=== PATIENT | female | born 1940 | race Caucasian/White ===

== ENCOUNTER 2022-08-15 10:09 | Outpatient (REF) | payer MEDICARE, SELFPAY ==
--- NOTE | ~2022-08-15 | MM_ITS ---
EXAMINATION: BONE DENSITOMETRY CLINICAL INDICATION: Menopause. COMPARISON: None (current study represents initial baseline exam). TECHNIQUE: Using a [employer] DXA System (software version: 13.1) manufactured by [employer], dual-energy x-ray absorptiometry was performed of the lumbar spine and left hip. The images are of good technical quality. Summary results are attached. FINDINGS: AP SPINE L1-L4: BMD 1.183 g/cm2, Z-score 1.5, T-score 0.0, normal. LEFT FEMUR, NECK: BMD 0.778 g/cm2, Z-score 0.1, T-score -1.9, osteopenia. LEFT FEMUR, TOTAL: BMD 0.894 g/cm2, Z-score 0.9, T-score -0.9, normal. IDENTIFIED RISK FACTORS: Menopause. HISTORY OF FRACTURE: None listed. MEDICATIONS: Calcium supplements or multivitamin, vitamin D. MM/XR DEXA axial skeleton IMPRESSION: 1. DIAGNOSIS: Osteopenia based on the lowest T-score value of -1.9 in the femoral neck applying World Health Organization criteria. 2. 10-YEAR FRACTURE RISK PREDICTION, FRAX: Major osteoporotic fracture (clinical spine, forearm, hip or shoulder) 14.5%. Hip fracture 4.2%. 3. Treatment Recommendations: NOF guidelines recommend consideration for treatment in postmenopausal women and men age 50 and older presenting with the following: -A hip or vertebral (clinical or morphometric) fracture. -T-score less than or equal to -2.5 at the femoral neck or spine after appropriate evaluation to exclude secondary causes. -Low bone mass at the hip or spine and a 10-year fracture probability by FRAX of greater than or equal to 3% for hip fracture or greater than or equal to 20% for major osteoporotic fracture based on the [place] adapted WHO algorithm. 4. Other Recommendations: All treatment decisions require clinical judgment and consideration of individual patient factors, including patient preferences, comorbidities, previous drug use, risk factors not captured in the FRAX model (e.g. frailty, falls, vitamin D deficiency, increased bone turnover, interval significant decline in bone density) and possible under or overestimation of fracture risk by FRAX. Additional medical evaluation for secondary cause of low bone mineral density may be appropriate. FUTURE SCAN RECOMMENDATION: People with diagnosed cases of osteoporosis or at high risk for fracture should have regular bone mineral density tests. For patients eligible for Medicare, routine testing is allowed once every 2 years. The testing frequency can be increased to one year for patients who have rapidly progressing disease, those who are receiving or discontinuing medical therapy to restore bone mass, or have additional risk factors.
== END 2022-08-15 10:10 | disposition home or self-care (01) ==
LOC: HO.MAMMO 10:09
PROVIDERS: Visit Provider Internal Medicine
DX: Z13.820 Encounter for screening for osteoporosis (principal); Z78.0 Asymptomatic menopausal state
CPT/HCPCS: 77080

== ENCOUNTER 2023-08-07 11:26 | Inpatient (IN) | payer MEDICARE, SELFPAY ==
[2023-08-07] VITALS (21 sets, daily range): BP systolic 103–194; BP diastolic 51–127; PULSE 69–94; RESP 12–23; TEMP 36.7–36.8; O2SAT 90–100; BMI 28.9; BMI 29.6
--- NOTE | ~2023-08-07 | MR_ITS ---
MRI OF THE BRAIN WITHOUT IV CONTRAST INDICATION: CVA status post tnk COMPARISON: Same day CTA head and neck TECHNIQUE: Multiplanar multisequence MR imaging of the brain was obtained without IV contrast. FINDINGS: Focus of restricted diffusion in the left temporal parietal lobe. There is a tubular appearing focus of susceptibility artifact in this region (series 6, image 14 of 25), query thrombosed vessel. Scattered and confluent periventricular white matter T2/FLAIR hyperintensities, nonspecific however commonly seen with small vessel ischemic disease. Diffuse prominence of the sulci with associated ex vacuo dilation of the ventricles compatible with global cerebral atrophy. No midline shift or hydrocephalus. No acute extra-axial fluid collections. The osseous structures are unremarkable. Partially empty sella. The pineal gland and remaining midline structures are unremarkable. No orbital pathology. Mucosal thickening of the paranasal sinuses. Right greater than left mastoid effusions. MR/MR head/brain wo con IMPRESSION: 1. Small acute infarct in the left temporoparietal lobe. 2. Global cerebral volume loss and sequela of chronic microangiopathy.
--- NOTE | ~2023-08-07 | CT_ITS ---
EXAMINATION: CT ANGIOGRAM HEAD CT ANGIOGRAM NECK CLINICAL INFORMATION: Reason for Exam Expressive aphasia COMPARISON: Immediately preceding noncontrast head CT TECHNIQUE: Initial noncontrast k 8 school principal imaging of the head and neck was performed. Comparison is made with noncontrast head CT from earlier today. Test bolus sequences followed by intravenous administration 70 mL of Omnipaque 350. Helical imaging was performed in the axial plane from the aortic arch to the skull vertex. Delayed postcontrast imaging of the head was also performed. The data was processed at the nanotechnologist's workstation for generation of MIP sequences. Angled MIPs and volume rendered reformatted images were also generated at an offline 3D workstation. Stenoses are assessed in accordance with NASCET criteria unless otherwise indicated. DLP: 1424 mGy-cm This CT examination was performed using dose optimization techniques as appropriate, variously including the following: *Automated exposure control. *Adjustment of mA and/or kV according to patient size (this includes techniques or standardized protocols for targeted exams where dose is matched to indication/reason for exam; i.e. extremities or head). *Use of iterative reconstruction technique. FINDINGS: CT Head: There is no evidence of acute intracranial hemorrhage or edematous territorial infarction. Patchy hypoattenuation in the periventricular and deep white matter are consistent with moderate microangiopathy. Molina-white matter differentiation is preserved. The ventricles are normal in size and configuration. No evidence for obstructive hydrocephalus. No abnormal mass effect or midline shift. No extra-axial fluid collections. No pathologic intra-axial enhancement or regional oligemia. No acute soft tissue or osseous abnormalities. The mastoid air cells and paranasal sinuses are clear. Degenerative changes of the right temporomandibular joint. CT Neck: The thyroid gland and remaining cervical soft tissues are within normal limits. Multilevel cervical spondylosis CT Upper Chest: The visualized lung apices and upper mediastinum are within normal limits. Neck CTA: Aortic Arch: Normal contour and caliber. There is atherosclerotic calcification of the aortic arch. Conventional three-vessel aortic arch. Great Vessel Origins: Atherosclerotic calcification involving the aortic arch branch origins without significant stenosis. There is mild atherosclerotic narrowing of the proximal left subclavian artery. Right Common Carotid Artery: No focal stenosis or occlusion. Cervical Right Internal Carotid Artery: Calcific atherosclerotic disease of the carotid bulb and proximal internal carotid artery causing less than 50% stenosis. Left Common Carotid Artery: No focal stenosis or occlusion. Cervical Left Internal Carotid Artery: Calcific atherosclerotic disease of the carotid bulb and proximal internal carotid artery causing less than 50% stenosis. The origins of the vertebral arteries are not well visualized due to streak artifact. Cervical Right Vertebral Artery: No focal stenosis or occlusion. Cervical Left Vertebral Artery: No focal stenosis or occlusion. Brain CTA: Intracranial Internal Carotid Arteries: Calcific atherosclerotic disease of the intracranial internal carotid arteries without occlusion or flow-limiting stenosis. Right Anterior Cerebral Artery: Normal A1 segment. Normal opacification of the distal ANDREIA segments. Left Anterior Cerebral Artery: Normal A1 segment. Normal opacification of the distal ANDREIA segments. Anterior Communicating Artery: Normal. Right Middle Cerebral Artery: Normal M1 segment of the MCA without focal stenosis or occlusion. Normal arborization of the distal segments. Left Middle Cerebral Artery: Normal M1 segment of the MCA without focal stenosis or occlusion. Normal arborization of the distal segments. Right Vertebral Artery: Mild calcified atherosclerotic narrowing of the proximal intradural right vertebral artery without additional focal stenosis. Left Vertebral Artery: Normal V4 segment. Basilar Artery: Normal without focal stenosis or occlusion. Normal appearance of the proximal superior cerebellar arteries. Right Posterior Cerebral Artery: Normal P1 segment. Normal opacification of the distal [employer]OR [employer] segments. Left Posterior Cerebral Artery: Normal P1 segment. Normal opacification of the distal [employer]OR [employer] segments. Normal opacification of the superior sagittal, straight, transverse, and sigmoid sinuses. CT/CT angio head neck stroke IMPRESSION: No arterial high grade stenosis or large vessel occlusion in the head or neck. Above impression was communicated to Dr. Harper on 08/07/2023 12:13 PM
--- NOTE | ~2023-08-07 | CT_ITS ---
CT head for stroke CLINICAL INFORMATION: Reason for Exam Expressive aphasia COMPARISON: No prior CT available for comparison. TECHNIQUE: Department standard protocol. This CT examination was performed using dose optimization techniques as appropriate, variously including the following: *Automated exposure control *Adjustment of mA and/or kV according to patient size (this includes techniques or standardized protocols for targeted exams where dose is matched to indication/reason for exam; i.e. extremities or head) *Use of iterative reconstruction technique DLP: 672 mGy-cm FINDINGS: CEREBRAL HEMISPHERES: There is no evidence of intra-axial or extra-axial mass, hemorrhage or acute infarct. BRAIN PARENCHYMA: Deep white matter and paraventricular hypoattenuation, nonspecific; most likely changes secondary to chronic ischemia due to microvascular angiopathy. SUBDURAL SPACE: No bleed. BASAL GANGLIA AND PINEAL GLAND: Unremarkable VENTRICLES: Symmetric and normal in size. CEREBELLUM AND BRAINSTEM: No space-occupying mass, hemorrhage or acute infarct. CEREBELLOPONTINE ANGLES: No lesion found. ORBITS: No intraorbital mass. VESSELS: Unremarkable SKULL BASE: Unremarkable INCLUDED SINUSES AT SKULL BASE: Clear SKULL AND SKIN: No fracture or bone lesion found. CT/CT head for stroke IMPRESSION: No CT evidence of intracranial space-occupying mass, bleed or infarct. This critical result was discussed with Demi Harper MD by telephone at 08/07/2023 12:00 PM and it was ascertained that the content and urgency of the report was understood at the time of direct communication.
--- NOTE | 2023-08-07 11:33 | ECG_ITS ---
Test Reason : STROKE Blood Pressure : / mmHG Vent. Rate : 089 BPM Atrial Rate : 089 BPM P-R Int : 174 ms QRS Dur : 076 ms QT Int : 360 ms P-R-T Axes : 083 -30 053 degrees QTc Int : 438 ms Normal sinus rhythm Left anterior fascicular block Low voltage QRS Inferior infarct , age undetermined Cannot rule out Anterior infarct , age undetermined Abnormal ECG No previous ECGs available Referred By: Demi Harper Electronically Signed By:NASRIN HALL MD
--- NOTE | 2023-08-07 11:36 | ED_ITS ---
HPI - Neuro Symptoms/Deficit General Chief Complaint: Stroke Stated Complaint: ?STROKE,LDROOP,DIFF W/WORDS,LKWT 30MIN,-THINN Time Seen by Provider: 08/07/23 11:33 Source: patient, family (Daughter) and EMS Mode of arrival: EMS History of Present Illness HPI Narrative: 83-year-old female who arrives via EMS with onset 45 minutes ago with difficulty F remembering her daughter's name and having difficulty with remembering how to spell words. She has some difficulty in telling us what today's date is. She is noted to be hypertensive. Related Data Allergies Allergy/AdvReac Type Severity Reaction Status Date / Time No Known Allergies Allergy Verified 08/07/23 11:36 Review of Systems 2 Review of Systems: Pertinent positives and negatives as stated in HPI PMFSH Past Medical History Source: nursing notes reviewed Social History Social History Advance Directives: No Advance Directives Information Provided: Yes Physical Exam 2 Vital Signs: Vital Signs: Last Vital Signs Temp 98.0 F 08/07/23 11:30 Pulse 73 08/07/23 13:40 Resp 18 08/07/23 13:40 BP 144/78 H 08/07/23 13:40 Pulse Ox 99 08/07/23 13:40 O2 Del Method Room Air 08/07/23 13:40 BMI result Body Mass Index 28.9 VITAL SIGNS: Reviewed. GENERAL: Well developed, well nourished, in no acute distress. HEAD: Normocephalic/atraumatic EYES: PERRLA, EOMI EARS: Ext canals without abnormality NOSE: Nares patent bilateral OROPHARYNX: no oral lesions noted, posterior pharynx clear NECK: Supple, no adenopathy LUNGS: Normal breath sounds. No adventitious sounds or accessory muscle use. CARDIOVASCULAR: Regular rate and rhythm without noted murmurs, no JVD or lower extremity edema. ABDOMEN: Soft, non-tender, non-distended with bowel sounds. MUSCULOSKELETAL: No tenderness, deformities, or effusions noted on gross inspection. EXTREMITIES: No cyanosis, clubbing or edema. SKIN: Inspection of the skin reveals no rashes NEUROLOGIC: Alert and oriented x 4. Strength and sensation to light touch were grossly intact x 4, please see NIH score-3. Medications Administered Discontinued Medications Generic Name Dose Route Start Last Admin Trade Name Freq PRN Reason Stop Dose Admin Tenecteplase 19 mg 08/07/23 12:01 08/07/23 12:09 Tenecteplase 50 Mg/10 Ml Kit IVPUSH 08/07/23 12:02 19 mg ONCE ONE Administration Medical Decision Making Medical Decision Making [facility] Narrative: 1130: 83-year-old female with history and clinical presentation concerning for possible stroke-like symptoms and primarily expressive aphasia within NIH stroke scale of 3, she is hypertensive, daughter does state that patient takes benzodiazepines and sometimes will have presentations like this. audio visual collections coordinator at bedside. POC-115, INR-1.0, weight-74 kg 1158: [facility] called with results of noncontrast CT of the head without acute changes and no intracranial hemorrhage. 1210: 19 mg of Tenectaplase given 1212: [facility] called and has not seen anything convincing on CT angio head and neck. Negative for LVO 1217: Expressive aphasia has completely cleared I reviewed all investigations and there is no EKG evidence for atrial fibrillation or atrial flutter, hematologic indices negative for leukocytosis or left shift, no anemia or thrombocytopenia. Coagulation studies are grossly within normal limits. Chemistry indices do not demonstrate any EUGENIO and there is no electrolyte derangements and high sensitivity troponin although the detectable is not significantly elevated in there are no corresponding EKG acute ischemic changes. Urinalysis negative for UTI or hematuria. 1357: I discussed case with the buyer assistant who accepts admission. Differential Diagnosis Differential Diagnoses: The differential diagnosis associated with the presentation includes Please see the discussion above Admission/Observation Consideration of admission/observation: Escalation of care including admission/observation considered Please see the discussion above Consult Healthcare Provider Management of the patient was discussed with: Training Development Director Please see the discussion above Lab Data [facility] Lab Attestation statement: I reviewed the patient's lab results. Please see the discussion above 08/07/23 12:27 08/07/23 12:27 Labs: Lab Results 08/07/23 08/07/23 08/07/23 Range/Units 11:37 12:27 12:47 WBC 5.9 (4.8-10.8) X10*3/uL RBC 4.92 (4.20-5.50) X10*6/uL Hgb 15.0 (12.0-16.0) g/dl Hct 44.6 (37.0-47.0) % MCV 90.7 (80.0-98.0) fL MCH 30.5 (27.0-33.0) pg MCHC 33.6 (31.0-35.0) g/dl RDW 13.3 (11.0-16.0) % Plt Count 196 (160-400) X10*3/uL MPV 9.7 (9.4-12.3) fL Immature Gran % (Auto) 0.3 (0.0-0.4) % Neut % (Auto) 45.5 (45-73) % Lymph % (Auto) 42.2 H (20-40) % [place] % (Auto) 9.3 (2-11) % Eos % (Auto) 1.7 (0-4) % Baso % (Auto) 1.0 (0-2) % Lymph # (Auto) 2.5 (1.2-4.9) X10*3/uL [place] # (Auto) 0.6 (0.1-1.2) X10*3/uL Eos # (Auto) 0.1 (0.0-0.4) X10*3/uL Baso # (Auto) 0.1 (0.0-0.2) X10*3/uL Abs Immat Gran (auto) 0.02 (0.00-0.03) X10*3/uL Absolute Neuts (auto) 2.7 (2.0-8.3) x10*3/uL Absolute Nucleated RBC 0.000 (0.0-0.012) X10*3/uL Nucleated RBC % (auto) 0.0 (0.0-0.2) /100WBC Smear Tech's Comments VERIFIED PT 11.1 (11.1-13.3) SEC Whole Blood PT 12.2 (11.1-13.5) sec INR 0.9 (0.9-1.1) Whole Blood INR 1.0 (0.9-1.1) APTT 28.1 (26.0-36.4) SEC Sodium 136 (135-145) mmol/L Potassium 4.9 (3.3-5.1) mmol/L Chloride 104 (96-108) mmol/L Carbon Dioxide 21 L (22-29) mmol/L Anion Gap 16 (12-20) BUN 23 H (9-16) mg/dL Creatinine 0.83 (0.5-1.4) mg/dL Estim Creat Clear Calc 49.5 Estimated GFR > 60 POC Glucose 115 (60-115) mg/dL Random Glucose 93 (60-115) mg/dL Calcium 9.4 (8.4-10.2) mg/dL Total Creatine Kinase 79 (26-140) U/L Troponin I High Sens 6.0 (<3.5-17.0) ng/L Urine Color Urine Appearance Urine pH (5.0-9.0) Ur Specific [place] (1.005-1.025) Urine Protein (Neg-Trace) mg/dL Urine Glucose (UA) (Negative) mg/dL Urine Ketones (Negative) mg/dL Urine Blood (Negative) Urine Nitrite (Negative) Ur Leukocyte Esterase (Negative) Urine RBC (0-2) /HPF Urine WBC (0-5) /HPF Ur Squamous Epith Cells (0-2) /HPF Urine Bacteria (None Seen) Hyaline Casts (0-2) /LPF 08/07/23 Range/Units 13:05 WBC (4.8-10.8) X10*3/uL RBC (4.20-5.50) X10*6/uL Hgb (12.0-16.0) g/dl Hct (37.0-47.0) % MCV (80.0-98.0) fL MCH (27.0-33.0) pg MCHC (31.0-35.0) g/dl RDW (11.0-16.0) % Plt Count (160-400) X10*3/uL MPV (9.4-12.3) fL Immature Gran % (Auto) (0.0-0.4) % Neut % (Auto) (45-73) % Lymph % (Auto) (20-40) % [place] % (Auto) (2-11) % Eos % (Auto) (0-4) % Baso % (Auto) (0-2) % Lymph # (Auto) (1.2-4.9) X10*3/uL [place] # (Auto) (0.1-1.2) X10*3/uL Eos # (Auto) (0.0-0.4) X10*3/uL Baso # (Auto) (0.0-0.2) X10*3/uL Abs Immat Gran (auto) (0.00-0.03) X10*3/uL Absolute Neuts (auto) (2.0-8.3) x10*3/uL Absolute Nucleated RBC (0.0-0.012) X10*3/uL Nucleated RBC % (auto) (0.0-0.2) /100WBC Smear Tech's Comments PT (11.1-13.3) SEC Whole Blood PT (11.1-13.5) sec INR (0.9-1.1) Whole Blood INR (0.9-1.1) APTT (26.0-36.4) SEC Sodium (135-145) mmol/L Potassium (3.3-5.1) mmol/L Chloride (96-108) mmol/L Carbon Dioxide (22-29) mmol/L Anion Gap (12-20) BUN (9-16) mg/dL Creatinine (0.5-1.4) mg/dL Estim Creat Clear Calc Estimated GFR POC Glucose (60-115) mg/dL Random Glucose (60-115) mg/dL Calcium (8.4-10.2) mg/dL Total Creatine Kinase (26-140) U/L Troponin I High Sens (<3.5-17.0) ng/L Urine Color Yellow Urine Appearance Clear Urine pH 7.0 (5.0-9.0) Ur Specific [place] 1.020 (1.005-1.025) Urine Protein Negative (Neg-Trace) mg/dL Urine Glucose (UA) Negative (Negative) mg/dL Urine Ketones Negative (Negative) mg/dL Urine Blood Negative (Negative) Urine Nitrite Negative (Negative) Ur Leukocyte Esterase Trace H (Negative) Urine RBC 0-2 (0-2) /HPF Urine WBC 0-5 (0-5) /HPF Ur Squamous Epith Cells 0-2 (0-2) /HPF Urine Bacteria None Seen (None Seen) Hyaline Casts 0-2 (0-2) /LPF Independent Interpretation I performed an independent interpretation of an: EKG Interpretation: Normal sinus rhythm, HR-89, no STEMI, MA/QRS/QTC is within normal limits. Radiology Impression Discussion of test interpretation with radiology: I have reviewed the radiologist's reading. Radiologist Impression: Please see the discussion above Chronic Conditions Patient?s care impacted by: Hypertension NIH Stroke Scale Internal: Initial- Upon Arrival Level of Consciousness: Alert Level of Consciousness Questions: Answers neither question correctly Level of Consciousness Commands: Performs both tasks correctly Best Gaze: Normal Visual: No visual loss Facial Palsy: Normal Motor Arm (Right): No drift Motor Arm (Left): No drift Motor Leg (Right): No drift Motor Leg (Left): No drift Limb Ataxia: Absent Sensory: Normal Best Language: Mild to moderate aphasia Dysarthia: Normal Extinction and Inattention: No abnormality Score: 3 Critical Care Time Critical Care Time Critical Care Time: Yes Total Critical Care Time: 60 Attestation: I personally attest to this time spent taking care of the patient. Discharge Plan Discharge Clinical Impression: Cerebrovascular accident Patient Disposition: Admitted As Inpatient
[2023-08-07 11:40] LABS: Glucose, Whole Blood 115 mg/dL (60-115)
[2023-08-07 11:41] LABS: Prothrombin Time Whole Bld POC 12.2 sec (11.1-13.5)
[2023-08-07] MEDS: Tenecteplase 50 MG/10 ML KIT 19 MG IVPUSH (12:09)
--- NOTE | 2023-08-07 12:27 | PC.NURSE ---
patient is awake, able to speak clearly at this time. articulating the date and her daughter's name with no difficulties. is conversing with her daughter in full clear sentences.
[2023-08-07 12:37] LABS: Basophils Absolute Auto 0.1 X10*3/uL (0.0-0.2); Eosinophils Absolute Auto 0.1 X10*3/uL (0.0-0.4); MANUAL DIFF FLAG SCAN; Mean Corpuscular HGB Conc 33.6 g/dl (31.0-35.0); Mean Corpuscular Hemoglobin 30.5 pg (27.0-33.0); Monocytes Absolute Auto 0.6 X10*3/uL (0.1-1.2); Neutrophils Absolute Auto 2.7 x10*3/uL (2.0-8.3); PLT CLUMP 1; SCAN SMEAR FLAG 1
[2023-08-07 12:49] LABS: Anion Gap 16 (12-20); Blood Urea Nitrogen 23 mg/dL (9-16); Calcium 9.4 mg/dL (8.4-10.2); Carbon Dioxide 21 mmol/L (22-29); Chloride 104 mmol/L (96-108); Creatinine Clr Calc Pharmacy 49.5; Estimated Glomerular Filt Rate > 60; Glucose Random 93 mg/dL (60-115); Potassium 4.9 mmol/L (3.3-5.1); Sodium 136 mmol/L (135-145)
[2023-08-07 12:57] LABS: INTERNATIONAL NORM RATIO 0.9 (0.9-1.1); Prothrombin Time 11.1 SEC (11.1-13.3)
[2023-08-07 12:59] LABS: Eosinophils Percent Auto 1.7 % (0-4); Hematocrit 44.6 % (37.0-47.0); Imm Gran Abs Auto 0.02 X10*3/uL (0.00-0.03); Imm Gran Pct Auto 0.3 % (0.0-0.4); Lymphocytes Absolute Auto 2.5 X10*3/uL (1.2-4.9); Lymphocytes Percent Auto 42.2 % (20-40); Mean Corpuscular Volume 90.7 fL (80.0-98.0); Mean Platelet Volume 9.7 fL (9.4-12.3); Monocytes Percent Auto 9.3 % (2-11); Neutrophils Percent Auto 45.5 % (45-73); Red Blood Count 4.92 X10*6/uL (4.20-5.50); Red Cell Distribution Width 13.3 % (11.0-16.0); White Blood Count 5.9 X10*3/uL (4.8-10.8)
[2023-08-07 13:00] LABS: Platelet Count 196 X10*3/uL (160-400)
[2023-08-07 13:00] LABS: Partial Thromboplastin Time 28.1 SEC (26.0-36.4)
[2023-08-07 13:01] LABS: Stroke Lab Use COMPLETE
[2023-08-07 13:01] LABS: SLIDE REVIEW VERIFIED
--- NOTE | 2023-08-07 13:03 | PC.NURSE ---
continues to remain alert and oriented, speaking in full clear sentences. equal extremity strength in all extremities. utilized bedpan to obtain urine sample.
--- NOTE | 2023-08-07 13:13 | MHC.STROKE ---
Addendum entered by Debbie Wang RN 08/08/23 11:42: YESTERDAY I FOLLOWED UP WITH THE PATIENT AND FAMILY UPON ARRIVAL TO ICU. THEY HAD SLIGHT CONCERNS REGARDING HER FORGETFULNESS. THAT WAS REPORTED TO DR STEPHENS AND HE RECOMMENDED GETTING THE MRI ON 08/07/23, WHICH WAS DONE. TODAY I REVIEWED THE MRI SCAN WITH DR STEPHENS AND THEN WENT TO MEET WITH THE PATIENT AND HER 2 DAUGHTERS INA AND LIN. I REINFORCED STROKE EDUCATION, I PROVIDED THEM WITH POWER POINT HANDOUTS AND THE MRI SCREENSHOT OF THE LOCATION OF HER STROKE AND WE DISCUSSED THE CORRELATING SYMPTOMS. WE ALSO DISCUSSED HER INDIVIDUAL RISK FACTORS FOR STROKE, HTN, HDL, STRESS/ANXIETY, BMI 28. SHE HAS HIGH CHOLESTEROL IN HER FAMILY HISTORY AND WE DISCUSSED TAKING A HIGH DOSE STATIN. ALSO ASPIRIN 81MG AND BLOOD PRESSURE CONTROL WELL STRESS MANAGEMENT AND COUNSELING. I DID ENCOURAGE HER TO FOLLOW UP WITH DR PRESLEY AND WORK ON THESE RISK FACTORS AN OUTPATIENT. I ALSO MENTIONED IF SHE SHOULD HAVE STROKE SYMPTOMS AGAIN, TO CALL 911 AND NOT CALL THE PCP. I ANSWERED ALL OF THEIR QUESTIONS AND TOLD THEM TO CALL ME IF THEY NEED ANYTHING. Original Note: [facility] PRE-NOTIFICATION 1120, STROKE ALERT CALLED IN, ARRIVED AT 1126, ONSET OF EXPRESSIVE APHASIA 45MIN GRAIN DISTRIBUTOR 10:44, AT DR. PRESLEY'S OFFICE. STROKE PROTOCOL ACTIVATED. EXAMINED BY PROVIDER, WEIGHT, DIRECT TO CT AND CTA. NO BLEED, NO LVO. DR GARCIA SPOKE WITH NEUROLOGIST DR. STEPHENS. PATIENT VERY ANXIOUS ESPECIALLY WHEN HER ARRIVED. TRENDING SBP PRIOR TO TNK TENECTEPLASE, THEREFORE > 30MIN DOOR TO NEEDLE. TNK BOLUS DOSE GIVEN AT 1210, PATIENT NPO FOR 6HRS, FAILED SWALLOW SCREEN. TO BE RE-SCREENED IN ICU AFTER 1800. STROKE EDUCATION INITIATED WITH PATIENT, DTR, . PLAN OF CARE REVIEWED WELL. I ANSWERED ALL OF THEIR QUESTIONS.
[2023-08-07 13:22] LABS: Appearance Urine Clear; Color Urine Yellow; Glucose Urine UA Negative (Negative); Leukocyte Esterase Urine Trace (Negative); Nitrite Urine Negative (Negative); UMIC TRIGGER UACC YES; Urine Blood Negative (Negative); Urine Ketones Negative (Negative); Urine Protein Negative (Neg-Trace)
[2023-08-07 13:26] LABS: Bacteria Urine None Seen (None Seen); Hyaline Casts Urine 0-2 /LPF (0-2); RBC Urine 0-2 /HPF (0-2); Squamous Epithelial Cell Urine 0-2 /HPF (0-2); WBC Urine 0-5 /HPF (0-5)
--- NOTE | 2023-08-07 13:40 | PM.NEUROCN ---
History of Present Illness Data of Consult Service Date: 08/07/23 Primary Care Provider: Saman Huynh MD [facility] Reason for consult: Acute onset of difficulty expressing herself This is a 83 yr old previously healthy woman who takes no meds at home, was writing some cards this morning and suddenly could not write the name of her daughter Demi and then realized therewas something wrong so she was taken to her PCPs office, Dr. Huynh noted some expressive dysphasia nd sent her to [facility]. When she arrived she was havin dysfluent periods with getting stuck for words and not being able to get them out interspersed with periods of saying a sentence normally. No comprehension problems and no focal weakness, numbness or facial droop. CT brain and CTA were negative , so she was given Tenecteplase IV bolus. Her sx hav eimproved but she feels she is not 100% normal yet. MRI and Echo are pending. Initially, her BP was eelevated and [place] snow come down. No previous stroke of TIA, DM, CAD. Borderline HBP at times - not on any meds. Review of Systems Review of Systems: Pertinent positives and negatives as stated in HPI [facility] Social History Social History Advance Directives: No Advance Directives Information Provided: Yes Meds Allergies Allergy/AdvReac Type Severity Reaction Status Date / Time No Known Allergies Allergy Verified 08/07/23 11:36 Physical Exam Vital Signs: Vital Signs: Last Vital Signs Temp 98.0 F 08/07/23 11:30 Pulse 77 08/07/23 13:04 Resp 16 08/07/23 13:04 BP 162/77 H 08/07/23 13:04 Pulse Ox 98 08/07/23 13:04 O2 Del Method Room Air 08/07/23 13:04 BMI result Body Mass Index 28.9 Neuro: Other: Alert and oriented x 3 with occasional word finding difficulty. Most sentences are fluent. Speaks Turk[place] as well. Cranial nerves normal . Muscle tone and strength normal. Results Labs 08/07/23 12:27 08/07/23 12:27 Labs: Short CBC 08/07/23 Range/Units 12:27 WBC 5.9 (4.8-10.8) X10*3/uL Hgb 15.0 (12.0-16.0) g/dl Hct 44.6 (37.0-47.0) % Plt Count 196 (160-400) X10*3/uL BMP 08/07/23 12:27 Sodium 136 Potassium 4.9 Chloride 104 Carbon Dioxide 21 L BUN 23 H Creatinine 0.83 Calcium 9.4 Cardiac Enzymes 08/07/23 Range/Units 12:27 Total Creatine Kinase 79 (26-140) U/L Urine 08/07/23 Range/Units 13:05 Urine Color Yellow Urine Appearance Clear Urine pH 7.0 (5.0-9.0) Ur Specific [place] 1.020 (1.005-1.025) Urine Protein Negative (Neg-Trace) mg/dL Urine Glucose (UA) Negative (Negative) mg/dL Assessment and Plan (1) Cerebrovascular accident: Status: Acute Small acute left fronto temporal infarct. s/p TNK IV. CT brain and CTA negative. Recommend: MRI brain, Echocardiogram with bubble study. ASA 81mg to be started tomorrow. Procedures Date of Service Date of Service: 08/07/23
--- NOTE | 2023-08-07 14:18 | PHA.MEDREC ---
Pharmacy Consult ? Medication Reconciliation Pharmacy has completed the medication reconciliation. Patient reported medications. Reports shes get them from a house doctor in [place]. Reported sometimes taking mag and K but not regularly. Mercy Bustamante, PharmD
--- NOTE | 2023-08-07 14:28 | P.HPCC_ITS ---
History of Present Illness Date of Service: 08/07/23 Chief Complaint: Expressive Aphasia Patient is a 83 Y F, reportedly otherwise healthy, last known well reportedly 11:00, presenting with expressive aphasia, NIHSS 3, non-contrast CT head without acute changes, given tNK at 12:10, with complete resolution expressive aphasia, admitted ICU for post-tNK care; of note, CTA head and neck without large vessel occlusion Review of Systems 2 Review of Systems: Yes all other systems are reviewed and are negative Constitutional: Constitutional: Reports no additional constitutional complaints Eyes: Eyes: Reports no additional eye complaints ENT: Reports system reviewed and no additional complaints, except as documented Cardiovascular: Cardiovascular: Reports no additional cardiovascular complaints Respiratory: Respiratory: Reports no additional respiratory complaints Gastrointestinal: Gastrointestinal: Reports no additional gastrointestinal complaints Genitourinary: Genitourinary: Reports no additional female genitourinary complaints Musculoskeletal: Musculoskeletal: Reports no additional musculoskeletal complaints Integumentary/Breasts: Skin/Breast: Reports system reviewed and no additional complaints, except as docu Neurologic: Reports system reviewed and no additional complaints, except as documented Psychiatric: Psychiatric: Reports no additional psychiatric complaints Endocrine: Endocrine: Reports no additional endocrine complaints Hematologic/Lymphatic: Hematologic/Lymphatic: Reports no additional hematologic/lymphatic complaints Allergic/Immunologic: Allergic/Immunologic: Reports no additional allergic/immunologic complaints PMFSH Social History Social History Advance Directives: No Advance Directives Information Provided: Yes Meds Allergies Allergy/AdvReac Type Severity Reaction Status Date / Time No Known Allergies Allergy Verified 08/07/23 11:36 Active Medications: Current Medications Sodium Chloride (0.9 % Sodium Chloride Flush 3 Ml Syringe) 3 ml IVFLUSH [facility] Home Medications Medication Instructions Recorded Confirmed Last Taken Type cholecalciferol (vitamin D3) 50 50 mcg PO DAILY 08/07/23 08/07/23 Unknown History mcg (2,000 unit) tablet lorazepam 0.5 mg tablet 0.5 mg PO DAILY PRN Anxiety 08/07/23 08/07/23 Unknown History Physical Exam 2 Vital Signs: Vital Signs: Last Vital Signs Temp 98.0 F 08/07/23 11:30 Pulse 70 08/07/23 14:27 Resp 12 08/07/23 14:27 BP 163/72 H 08/07/23 14:27 Pulse Ox 98 08/07/23 14:27 O2 Del Method Room Air 08/07/23 14:27 BMI result Body Mass Index 28.9 Const: General: cooperative, healthy appearing, comfortable, no acute distress, well developed, alert, awake and Physically active O rientation/consciousness: patient oriented x3 HEENT: Head: Yes normal to inspection, Yes normocephalic and Yes atraumatic Eyes: General: appearance normal, both eyes and all related structures Neck: Neck: Yes normal visual inspection, Yes no meningeal signs and Yes supple Chest: Chest palpation & inspection: normal inspection of the chest Resp: Other: no appreciable rales, rhonchi, wheezing Effort & Inspection: normal respiratory effort Cardio: Rate: regular rate Rhythm: regular rhythm GI: Inspection: Yes normal to inspection, No Abdominal wall edema and No distended Palpation (GI): Soft to palpation, not firm, nontender, no guarding and not rigid : External Female Exam: normal external appearance Skin: General skin exam: no rashes or lesions noted Neuro: General: patient oriented x3, moves all extremities, no meningeal signs, no focal motor deficits and CN's II-XI intact bilaterally Cognition (Neuro): normal cognition Motor exam (neuro): 5/5 motor strength present throughout Extrem: General: Yes normal to inspection, Yes capillary refill normal and Yes no clubbing, cyanosis or edema Psych: Appearance: grossly normal Results Labs 08/07/23 12:27 08/07/23 12:27 Labs: Laboratory Results - last 24 hr 08/07/23 08/07/23 08/07/23 11:37 12:27 12:47 MCV 90.7 MCH 30.5 MCHC 33.6 RDW 13.3 Plt Count 196 MPV 9.7 Immature Gran % (Auto) 0.3 Neut % (Auto) 45.5 Lymph % (Auto) 42.2 H Ell[place] % (Auto) 9.3 Eos % (Auto) 1.7 Baso % (Auto) 1.0 Lymph # (Auto) 2.5 [place] # (Auto) 0.6 Eos # (Auto) 0.1 Baso # (Auto) 0.1 Abs Immat Gran (auto) 0.02 Absolute Neuts (auto) 2.7 Absolute Nucleated RBC 0.000 Nucleated RBC % (auto) 0.0 Smear Tech's Comments VERIFIED PT 11.1 Whole Blood PT 12.2 INR 0.9 Whole Blood INR 1.0 APTT 28.1 Anion Gap 16 Estim Creat Clear Calc 49.5 Estimated GFR > 60 POC Glucose 115 Random Glucose 93 Calcium 9.4 Total Creatine Kinase 79 Urine Color Urine Appearance Urine pH Ur Specific [place] Urine Protein Urine Glucose (UA) Urine Ketones Urine Blood Urine Nitrite Ur Leukocyte Esterase Urine RBC Urine WBC Ur Squamous Epith Cells Urine Bacteria Hyaline Casts 08/07/23 13:05 MCV MCH MCHC RDW Plt Count MPV Immature Gran % (Auto) Neut % (Auto) Lymph % (Auto) Ell[place] % (Auto) Eos % (Auto) Baso % (Auto) Lymph # (Auto) [place] # (Auto) Eos # (Auto) Baso # (Auto) Abs Immat Gran (auto) Absolute Neuts (auto) Absolute Nucleated RBC Nucleated RBC % (auto) Smear Tech's Comments PT Whole Blood PT INR Whole Blood INR APTT Anion Gap Estim Creat Clear Calc Estimated GFR POC Glucose Random Glucose Calcium Total Creatine Kinase Urine Color Yellow Urine Appearance Clear Urine pH 7.0 Ur Specific [place] 1.020 Urine Protein Negative Urine Glucose (UA) Negative Urine Ketones Negative Urine Blood Negative Urine Nitrite Negative Ur Leukocyte Esterase Trace H Urine RBC 0-2 Urine WBC 0-5 Ur Squamous Epith Cells 0-2 Urine Bacteria None Seen Hyaline Casts 0-2 Imaging Radiologist's Impressions: Impressions Head CT 08/07/23 11:44 IMPRESSION: No CT evidence of intracranial space-occupying mass, bleed or infarct. This critical result was discussed with Demi Harper MD by telephone at 08/07/2023 12:00 PM and it was ascertained that the content and urgency of the report was understood at the time of direct communication. Head/Neck CTA 08/07/23 11:47 IMPRESSION: No arterial high grade stenosis or large vessel occlusion in the head or neck. Above impression was communicated to Dr. Harper on 08/07/2023 12:13 PM Assessment and Plan (1) Cerebrovascular accident: Qualifiers: CVA mechanism: unspecified Qualified Code(s): I63.9 - Cerebral infarction, unspecified Status: Acute Plan Patient is a 83 Y F, reportedly otherwise healthy, last known well reportedly 11:00, presenting with expressive aphasia, NIHSS 3, non-contrast CT head without acute changes, given tNK at 12:10, with complete resolution expressive aphasia, admitted ICU for post-tNK care; of note, CTA head and neck without large vessel occlusion N: p/w expressive aphasia, c/f TIA vs CVA, s/p tNK w/ complete resolution of expressive aphasia; serial neurological checks CV: hypertension, not on home medications; of note, patient on lorazepam PRN, reportedly has had hypertension in the setting of withdrawal R: no acute issues GI: formal speech/swallow; advance diet as tolerated : no acute issues H: no acute issues; monitor stigmata of hemorrhage s/p tNK ID: no acute issues; no appreciable stigmata of infection E: no acute issues Total time managing care of this patient today: 90 minutes.
--- NOTE | 2023-08-07 15:14 | PC.NURSE ---
prior to bringing patient to icu, family reported that patient had been become increasingly confused. still answering questions appropriately, however forgetful of events. reached out to fleet coordinator concerning this who states this is to be expected.
[2023-08-07] MEDS: 0.9 % Sodium Chloride Flush 3 ML SYRINGE IVFLUSH ×2 (16:05→22:02)
[2023-08-07 16:36] LABS: Glucose, Whole Blood 98 mg/dL (60-115)
[2023-08-07 22:08] LABS: Glucose, Whole Blood 138 mg/dL (60-115)
[2023-08-08] VITALS (19 sets, daily range): BP systolic 105–157; BP diastolic 44–83; PULSE 65–96; RESP 12–25; TEMP 36.2–36.8; O2SAT 93–100; BMI 30.5
[2023-08-08 06:04] LABS: MANUAL DIFF FLAG NO
[2023-08-08 06:13] LABS: Basophils Absolute Auto 0.1 X10*3/uL (0.0-0.2); Basophils Percent Auto 0.8 % (0-2); Eosinophils Absolute Auto 0.1 X10*3/uL (0.0-0.4); Eosinophils Percent Auto 1.6 % (0-4); Hematocrit 44.7 % (37.0-47.0); Imm Gran Abs Auto 0.02 X10*3/uL (0.00-0.03); Imm Gran Pct Auto 0.3 % (0.0-0.4); Lymphocytes Absolute Auto 3.8 X10*3/uL (1.2-4.9); Lymphocytes Percent Auto 50.7 % (20-40); Mean Corpuscular HGB Conc 33.6 g/dl (31.0-35.0); Mean Corpuscular Hemoglobin 30.2 pg (27.0-33.0); Mean Corpuscular Volume 90.1 fL (80.0-98.0); Mean Platelet Volume 9.2 fL (9.4-12.3); Monocytes Absolute Auto 0.7 X10*3/uL (0.1-1.2); Monocytes Percent Auto 9.4 % (2-11); Neutrophils Absolute Auto 2.8 x10*3/uL (2.0-8.3); Neutrophils Percent Auto 37.2 % (45-73); Platelet Count 241 X10*3/uL (160-400); Red Blood Count 4.96 X10*6/uL (4.20-5.50); Red Cell Distribution Width 13.3 % (11.0-16.0); White Blood Count 7.5 X10*3/uL (4.8-10.8)
[2023-08-08 06:41] LABS: Albumin Level 4.3 g/dL (3.5-5.0); Anion Gap 15 (12-20); Blood Urea Nitrogen 16 mg/dL (9-16); Carbon Dioxide 24 mmol/L (22-29); Chloride 104 mmol/L (96-108); Cholesterol 352 mg/dL (<200); Estimated Glomerular Filt Rate 54; Glucose Random 119 mg/dL (60-115); HDL Cholesterol 62 mg/dL (>40); LDL Cholesterol Calculated 255 mg/dL (<100); Magnesium 2.1 mg/dL (1.6-2.6); Phosphorus 3.8 mg/dL (2.7-4.5); Potassium 4.8 mmol/L (3.3-5.1); Sodium 138 mmol/L (135-145); Triglycerides 176 mg/dL (<150)
--- NOTE | 2023-08-08 07:00 | CA_ITS ---
Transthoracic Echocardiogram Patient (Last, First, Middle): Ni Figueroa, Gender: Female Date of : 1940 Age: 83 Procedure Date: 08/08/2023 Procedure Type: Transthoracic Echocardiogram Location: ICU Height: 160.02 cm Weight: 73.94 kg BSA: 1.77 m2 Heart Rate: 78 bpm BP: 163 / 72 mmHg Laborer Driver: KEON Referring MD: Dionne Herzog MD [employer] Consultant: Mart Chung MD Symptoms: c/f CVA Study Quality: Adequate ECG Rhythm: Sinus Conclusions: - 1. Normal LV ejection fraction of 60 65% with impaired relaxation filling pattern 2. Calcified aortic valve and mitral annular calcification noted with mild aortic regurgitation 3. Mildly dilated ascending aorta at 3.9 cm 4. Normal RV systolic pressure 5. No pericardial effusion Findings Left Ventricle Normal left ventricular size, thickness, and systolic function. The visually estimated ejection fraction is between 60-65%. Spectral Doppler is indicative of an impaired relaxation filling pattern. E/E prime ratio is between 8 and 15 consistent with indeterminate filling pressures. Right Ventricle Normal right ventricular cavity size and systolic function. Atria The left atrium is likely dilated. There is no evidence of interatrial shunt. The right atrium is normal in size. Aortic Valve There is mild calcification of the aortic valve. There is mild thickening of the aortic valve. There is no aortic valve stenosis. There is mild aortic valve regurgitation. Mitral Valve There is mild anterior and severe posterior mitral leaflet thickening. There is moderate mitral annular calcification. There is trace mitral valve regurgitation. There is no mitral valve stenosis. Pulmonic Valve The pulmonic valve is likely normal. There is trace pulmonic valve regurgitation. Tricuspid Valve Normal tricuspid valve structure. There is mild tricuspid valve regurgitation. The right ventricular systolic pressure is normal. The right ventricular systolic pressure is 32 mmHg. Normal right atrial pressure. There is no evidence of pulmonary hypertension. Great Vessels The pulmonary artery was not well visualized. There is mild dilatation of the ascending aorta measuring 3.90 cm. Venous The inferior vena cava is normal in size and collapses greater than 50% with inspiration. Pericardium/Pleural There is no evidence of pericardial effusion. Prior Study Comparison No prior study available for comparison. Measurements 2D Linear Measurements IVSd: 0.80 0.6-0.9/0.6-1.0 cm LVIDd: 4.33 3.9-5.3/4.2-5.9 cm LVIDd Index: 2.45 2.4-3.2/2.2-3.1 cm/m2 LVIDs: 2.67 2.0-3.6 cm LVPWd: 0.68 0.7-1.1 cm LA Diam: 3.80 2.7-3.8/3.0-4.0 cm LAIDs Index: 2.15 1.5-2.3 cm/m2 LV Mass: 119.96 67-162/88-224 g LV Mass Index: 67.77 43-95/49-115 g/m2 LVOT Diam: 2.00 3.0+(-)1.3 cm 2D Systolic Function EF Teich: 68.00 >55% Mitral Valve MV Pk E: 0.57 MV PK A: 0.98 MV Decel Time: 335.00 E/A: 0.60 E'Lateral: 6.20 E'Medial: 4.03 E/E' Med: 14.10 E/E' Lat: 9.20 PHT: 98.00 MVA PHT: 2.24 Decel Vance: 1.70 Aortic Valve AoV Pk Navid: 1.40 AoV Pk Grad: 8.00 TIRSO: 2.31 AI Pk Navid: 3.78 AI Vance: 2.04 LVOT LVOT Pk Navid: 1.03 LVOT Mn Navid: 0.67 LVOT VTI: 0.19 LVOT Pk Grad: 4.00 LVOT Mn Grad: 2.00 LVOT Diam: 2.00 LVOT Area: 3.14 Diastolic Function MV Pk E: 0.57 MV Pk A: 0.98 E/A: 0.60 E'Medial: 4.03 E/E' Med: 14.10 E' Laterial: 6.20 E/E' Lat: 9.20 Right Ventricle TAPSE (mm): 24.80 Tricuspid Valve TR Pk Navid: 2.69 TR Pk Grad: 29.00 RA Press: 3.00 RVSP: 32.00 Great Vessels Aorta Sinus of Valsalva: 3.40 2.0-3.5 cm Ao Asc: 3.90 2.1-3.4 cm Pulmonary Valve PV Pk Navid: 0.65 Peak PV Grad: 2.00 Updated in Other Vendor System with Status of Final Mart Chung MD electronically signed on 08/08/2023 2:44:16 PM with status of Final
[2023-08-08 07:16] LABS: Glucose, Whole Blood 109 mg/dL (60-115)
--- NOTE | 2023-08-08 07:31 | PM.CCPN ---
Subjective Subjective Date of Service: 08/08/23 Interval History: no signficant overnight events Critical Care Time (minutes): 60 Physical Exam Vital Signs: Vital Signs: Last Vital Signs Temp 97.9 F 08/08/23 03:00 Pulse 71 08/08/23 07:00 Resp 15 08/08/23 07:00 BP 123/63 08/08/23 07:00 Pulse Ox 100 08/08/23 07:00 O2 Del Method Room Air 08/08/23 07:00 BMI result Body Mass Index 30.5 Const: General: cooperative, comfortable, no acute distress, well developed, alert, awake and Physically active Orientation/consciousness: patient oriented x3 HEENT: Head: Yes normal to inspection, Yes normocephalic and Yes atraumatic Eyes: General: appearance normal, both eyes and all related structures Neck: Neck: Yes normal visual inspection and Yes no meningeal signs Chest: Chest palpation & inspection: normal inspection of the chest Resp: Other: no appreciable rales, rhonchi, wheezing Effort & Inspection: normal respiratory effort Cardio: Rate: regular rate Rhythm: regular rhythm GI: Inspection: Yes normal to inspection, No Abdominal wall edema and No distended Palpation (GI): Soft to palpation, not firm, nontender, no guarding and not rigid Skin: General skin exam: no rashes or lesions noted Neuro: General: patient oriented x3, tone normal, moves all extremities, no meningeal signs, no focal motor deficits and CN's II-XI intact bilaterally Extrem: General: Yes normal to inspection, Yes capillary refill normal and Yes no clubbing, cyanosis or edema Psych: Appearance: grossly normal Objective Data Labs 08/08/23 05:41 08/08/23 05:41 Labs: Laboratory Results - last 24 hr 08/07/23 08/07/23 08/07/23 11:37 12:27 12:47 WBC 5.9 RBC 4.92 Hgb 15.0 Hct 44.6 MCV 90.7 MCH 30.5 MCHC 33.6 RDW 13.3 Plt Count 196 MPV 9.7 Immature Gran % (Auto) 0.3 Neut % (Auto) 45.5 Lymph % (Auto) 42.2 H Edwards % (Auto) 9.3 Eos % (Auto) 1.7 Baso % (Auto) 1.0 Lymph # (Auto) 2.5 Edwards # (Auto) 0.6 Eos # (Auto) 0.1 Baso # (Auto) 0.1 Abs Immat Gran (auto) 0.02 Absolute Neuts (auto) 2.7 Absolute Nucleated RBC 0.000 Nucleated RBC % (auto) 0.0 Smear Tech's Comments VERIFIED PT 11.1 Whole Blood PT 12.2 INR 0.9 Whole Blood INR 1.0 APTT 28.1 Sodium 136 Potassium 4.9 Chloride 104 Carbon Dioxide 21 L Anion Gap 16 BUN 23 H Creatinine 0.83 Estim Creat Clear Calc 49.5 Estimated GFR > 60 POC Glucose 115 Random Glucose 93 Calcium 9.4 Phosphorus Magnesium Total Creatine Kinase 79 Troponin I High Sens 6.0 Albumin Triglycerides Cholesterol LDL Cholesterol, Calc HDL Cholesterol Urine Color Urine Appearance Urine pH Ur Specific [place] Urine Protein Urine Glucose (UA) Urine Ketones Urine Blood Urine Nitrite Ur Leukocyte Esterase Urine RBC Urine WBC Ur Squamous Epith Cells Urine Bacteria Hyaline Casts Blood Type Antibody Screen 08/07/23 08/07/23 08/07/23 13:05 15:50 16:33 WBC RBC Hgb Hct MCV MCH MCHC RDW Plt Count MPV Immature Gran % (Auto) Neut % (Auto) Lymph % (Auto) Edwards % (Auto) Eos % (Auto) Baso % (Auto) Lymph # (Auto) Edwards # (Auto) Eos # (Auto) Baso # (Auto) Abs Immat Gran (auto) Absolute Neuts (auto) Absolute Nucleated RBC Nucleated RBC % (auto) Smear Tech's Comments PT Whole Blood PT INR Whole Blood INR APTT Sodium Potassium Chloride Carbon Dioxide Anion Gap BUN Creatinine Estim Creat Clear Calc Estimated GFR POC Glucose 98 Random Glucose Calcium Phosphorus Magnesium Total Creatine Kinase Troponin I High Sens Albumin Triglycerides Cholesterol LDL Cholesterol, Calc HDL Cholesterol Urine Color Yellow Urine Appearance Clear Urine pH 7.0 Ur Specific [place] 1.020 Urine Protein Negative Urine Glucose (UA) Negative Urine Ketones Negative Urine Blood Negative Urine Nitrite Negative Ur Leukocyte Esterase Trace H Urine RBC 0-2 Urine WBC 0-5 Ur Squamous Epith Cells 0-2 Urine Bacteria None Seen Hyaline Casts 0-2 Blood Type O Positive Antibody Screen NEGATIVE 08/07/23 08/08/23 08/08/23 22:00 05:41 07:12 WBC 7.5 RBC 4.96 Hgb 15.0 Hct 44.7 MCV 90.1 MCH 30.2 MCHC 33.6 RDW 13.3 Plt Count 241 MPV 9.2 L Immature Gran % (Auto) 0.3 Neut % (Auto) 37.2 L Lymph % (Auto) 50.7 H Edwards % (Auto) 9.4 Eos % (Auto) 1.6 Baso % (Auto) 0.8 Lymph # (Auto) 3.8 Edwards # (Auto) 0.7 Eos # (Auto) 0.1 Baso # (Auto) 0.1 Abs Immat Gran (auto) 0.02 Absolute Neuts (auto) 2.8 Absolute Nucleated RBC 0.000 Nucleated RBC % (auto) 0.0 Smear Tech's Comments PT Whole Blood PT INR Whole Blood INR APTT Sodium 138 Potassium 4.8 Chloride 104 Carbon Dioxide 24 Anion Gap 15 BUN 16 Creatinine 0.98 Estim Creat Clear Calc 43.0 Estimated GFR 54 POC Glucose 138 H 109 Random Glucose 119 H Calcium 10.0 D Phosphorus 3.8 Magnesium 2.1 Total Creatine Kinase Troponin I High Sens Albumin 4.3 Triglycerides 176 H Cholesterol 352 H LDL Cholesterol, Calc 255 H HDL Cholesterol 62 Urine Color Urine Appearance Urine pH Ur Specific [place] Urine Protein Urine Glucose (UA) Urine Ketones Urine Blood Urine Nitrite Ur Leukocyte Esterase Urine RBC Urine WBC Ur Squamous Epith Cells Urine Bacteria Hyaline Casts Blood Type Antibody Screen Progress Note: A&P Assessment and plan (1) Cerebrovascular accident: Status: Acute Plan Patient is a 83 Y F, reportedly otherwise healthy, last known well reportedly 11:00, presenting with expressive aphasia, NIHSS 3, non-contrast CT head without acute changes, given tNK at 12:10, with complete resolution expressive aphasia, admitted ICU for post-tNK care; of note, CTA head and neck without large vessel occlusion N: p/w expressive aphasia, c/f TIA vs CVA, s/p tNK w/ complete resolution of expressive aphasia; MRI brain demonstrating small acute infarct L temporoparietal lobe CV: hypertension, not on home medications; blood pressure well-controlled w/o PRNs; no acute issues R: no acute issues GI: formal speech/swallow; advance diet as tolerated : no acute issues H: no acute issues; monitor stigmata of hemorrhage s/p tNK ID: no acute issues; no appreciable stigmata of infection E: no acute issues MSK: PT/OT evaluation Quality Stroke Does the patient have a stroke diagnosis?: Yes Reason for No Anti-thrombotic by Day Two: Contraindicated VTE Prior VTE?: No VTE Risk Level:: Medical - moderate - high VTE Device Contraindication: N/A - Device Ordered VTE Drug Contraindication: Treatment Not Tolerated
[2023-08-08] MEDS: 0.9 % Sodium Chloride Flush 3 ML SYRINGE IVFLUSH ×2 (08:22→16:21)
--- NOTE | 2023-08-08 10:28 | MHC.CM.PN ---
This lead technical writer met with patient in ICU w/ family @ bedside. Completed CM assessment. Patient is from home, no services prior to admission. HCP completed, original to pt, copy in chart. IMM delivered 08/08. DCP: Home no services, family to transport.
[2023-08-08] MEDS: Atorvastatin Calcium 20 MG TABLET PO (10:29)
[2023-08-08 11:06] LABS: Estimated Average Glucose 100 mg/dL; Hemoglobin A1c % 5.1 % (<6.0)
[2023-08-08 11:31] LABS: Glucose, Whole Blood 127 mg/dL (60-115)
[2023-08-08] MEDS: Aspirin 81 MG TAB.CHEW PO (14:19)
--- NOTE | 2023-08-08 14:27 | MHC.SLORD ---
Speech Language Pathology Order Status: HUMAN RESOURCES OFFICER consult ordered on 11/7 PM. Per chart review, pt passed RN swallow screen last night/was put on a regular diet. Per notes, complete resolution of expressive aphasia. Per conversation w/ MD, pt to be screened for speech/language by HUMAN RESOURCES OFFICER. HUMAN RESOURCES OFFICER saw patient at bedside in ICU early afternoon. No concerns for expressive or receptive aphasia. Pt answered questions accurately and appropriately including questions of orientation and auditory comprehension. Spontaneous speech fluent with full sentences and appropriate word use. She was noted to report she was in room 316. But otherwise, very much aware of her location and surroundings. A&O x4. HUMAN RESOURCES OFFICER provided education on language, speech, and swallowing post stroke and recommended she contact the doctor w/ any future difficulties or concerns in these areas. Pt reported she had word salad last night which has since resolved. Pt reported no concerns for speech, lang, or swallowing. Please re-refer if any future concerns arise.
--- NOTE | 2023-08-08 14:46 | MHC.SP.ADU ---
Referring provider: Rosenda Truong Reason for Referral: s/p CVA Type of Treatment: 71761 Assessment of Aphasia Date of Plan of Treatment: 08/08/23 Onset of Symptoms/Illness: 08/08/23 Date Treatment Started: 08/08/23 Medical Diagnosis: s/p CVA Primary Speech Language Diagnosis: R47.01 Aphasia Secondary Speech Language Diagnosis: History Pt is 83 year old female who presented to ED on 08/07 with ?stroke. Pt was having difficulties w/ names, spelling, and orientation. Swallowing History: Dysphagia Specific: Comments: Pt passed RN swallow screen. Per RN/MD, dysphagia eval not necessary d/t passing RN swallow screen. Pre-eval Risk for Aspiration: s/p CVA Pre-evaluation Dietary Consistencies: Regular Pre-eval Liquid Intake: Thin Assessment Speech/ Lang/ Cog Adults: ACID CONDITIONER consult ordered on 08/07 PM. Per chart review, pt passed RN swallow screen last night/was put on a regular diet. Per notes, complete resolution of expressive aphasia. Per conversation w/ MD, pt to be screened for speech/language by ACID CONDITIONER. ACID CONDITIONER saw patient at bedside in ICU early afternoon. Pt reports she speaks Armenian, Romanian, and Norwegian. Pt reported she had word salad last night which has since resolved. Pt reported no concerns for speech, lang, or swallowing. No immediate concerns for expressive or receptive aphasia upon screening. Pt answered most questions accurately and appropriately including questions of orientation and auditory comprehension. Spontaneous speech fluent with full sentences and appropriate word use. No difficulty word finding observed. Pt aware that she was at hospital in [place]. She was noted to report she was in room 316 (actually in 262). She reported accurate day of the week however incorrectly reported that her symptoms began last night at 9pm. Patient was already in hospital yesterday morning. Recommend 1 f/u with ACID CONDITIONER to monitor for aphasia/cognition. ACID CONDITIONER provided education on language, speech, and swallowing post stroke and recommended she contact the doctor w/ any future difficulties or concerns in these areas. Informal Voice Assessment: Voice Loudness: Normal Voice Phonatory-based Quality: Normal Voice Pitch: Normal ACID CONDITIONER Recommendation: Recommend 1 f/u with ACID CONDITIONER to further evaluate pt's language/cognition. Pt presenting with intermittent errors on facts regarding her hospitalization/orientation. Punch Press Operator Helper Clinican/Clinical Fellow: No Supervisory Statement: N/A Speech Language Pathologist: Maranda Barnett M.A., [facility]-ACID CONDITION[facility]
[2023-08-09] MEDS: 0.9 % Sodium Chloride Flush 3 ML SYRINGE IVFLUSH ×2 (02:32→11:10)
[2023-08-09 07:46] VITALS: BP 148/68; PULSE 99; RESP 20; TEMP 36.9; O2SAT 96
--- NOTE | 2023-08-09 09:51 | P.DS_ITS ---
DS: Providers Provider Date of Service: 08/09/23 Date of admission: 08/07/23 14:05 Primary care physician: Saman Huynh MD DS: Diagnosis Discharge Diagnosis (1) Cerebrovascular accident: Status: Acute DS: Summary Hospital Course Hospital Course: from initial hpi: 83 Y F, reportedly otherwise healthy, last known well reportedly 11:00, presenting with expressive aphasia, NIHSS 3, non-contrast CT head without acute changes, given tNK at 12:10, with complete resolution expressive aphasia, admitted ICU for post-tNK care; of note, CTA head and neck without large vessel occlusion hospital course: patient was admitted for acute left tempoparietal cva. given tNK, monitored in ICU. had complete resolution of symptoms. echo with 1. Normal LV ejection fraction of 60 65% with impaired relaxation filling pattern 2. Calcified aortic valve and mitral annular c alcification noted with mild aortic regurgitation. lipids elevated. started on asirin and high intensity statin. will be discharged home. Time Attestation Discharge coordination time: Greater than 30 minutes Quality: Safe Use of Opioids Does Pt have an Active Cancer Diagnosis on the Problem List?: No Quality: Stroke Does the patient have a stroke diagnosis?: Yes Reason for No Anti-thrombotic at DC: N/A - Med Ordered Reason for No Anticoagulant at DC: Drug treatment not indicated Reason Not Initiating IV-Tpa: N/A - Med Ordered Reason for No Anti-thrombotic by Day Two: N/A - Med Ordered Reason for No Statin at DC: N/A - Med Ordered Physical Exam Vital Signs: Vital Signs: Last Vital Signs Temp 98.4 F 08/09/23 07:46 Pulse 99 08/09/23 07:46 Resp 20 08/09/23 07:46 BP 148/68 H 08/09/23 07:46 Pulse Ox 96 08/09/23 07:46 O2 Del Method Room Air 08/09/23 07:46 BMI result Body Mass Index 30.5 General: AO X 3, no acute distress Resp: CTA bilateral, no accessory muscles used CVS: S1,S2,RRR GI: soft, non tender, non distended Neuro: motor grossly intact, alert Psych: appropriate affect, appropriate insight DS: Data Data Completed and Pending Labs on day of discharge: Laboratory Results - last 24 hr 08/08/23 08/08/23 10:26 11:24 POC Glucose 127 H Estimat Average Glucose 100 Hemoglobin A1c % 5.1 Discharge Plan Discharge Anticipated Discharge Date/Time: 08/09/23 09:49 Patient Disposition: Home, Self-Care Discharge Diagnosis: cva Referrals: Saman Huynh MD [Primary Care Provider] - 1 Week Discharge Medications: New aspirin 81 mg Tablet,Chewable 81 mg PO DAILY Qty: 30 0RF rosuvastatin 40 mg tablet 40 mg PO DAILY Qty: 30 0RF Continued lorazepam 0.5 mg Tablet 0.5 mg PO DAILY PRN (Reason: Anxiety) cholecalciferol (vitamin D3) 50 mcg (2,000 unit) Tablet 50 mcg PO DAILY Discharge Orders: Discharge Order (Routine); Ordered 08/09/23 Ordered By: Jovany Mercado Diet: Advance to usual diet Activity on Discharge: As tolerated Stand Alone Forms: Patient Portal Discharge page Care Plan Goals: prevent further strokes Health Concerns: stroke Plan of Treatment: aspirin and statin, follow up with pcp for statin tolerance Assessment: see above
--- NOTE | 2023-08-09 09:55 | MHC.CM.PN ---
Patient has been medically cleared for dc to home today, self care. IMM addressed yesterday.
[2023-08-09 11:08] VITALS: BP 158/70; PULSE 81; RESP 20; TEMP 36.9; O2SAT 100
[2023-08-09] MEDS: Aspirin 81 MG TAB.CHEW PO (11:10)
[2023-08-09] MEDS: Atorvastatin Calcium 40 MG TABLET PO (11:10)
== END 2023-08-09 12:45 | disposition home or self-care (01) | DRG 63 ==
LOC: HO.ED 13:58 → HO.EDOVER 14:15 → HO.ICU 14:33 → HO.IMC 08-08 15:21
PROVIDERS: Admitting Provider Internal Medicine Critical Care Medicine; Emergency Provider Student in an Organized Health Care Education/Training Program; PCP Internal Medicine; Visit Provider Internal Medicine
DX: I63.89 Other cerebral infarction (principal); R29.703 NIHSS score 3; R47.02 Dysphasia; Z79.899 Other long term (current) drug therapy
CPT/HCPCS: 36415; 70450; 70496; 70498; 70551; 80048; 80061; 81001; 82040; 82550; 82947; 83036; 83735; 84100; 84484; 85025; 85610; 85730; 86850; 86900; 86901; 93005; 93306; 97162; 97165; 99285; J3101

== ENCOUNTER 2023-08-07 14:05 | Outpatient (BNV) | payer MEDICARE, SELFPAY | END 2023-08-08 07:00 | PROVIDERS: Admitting Provider Internal Medicine Critical Care Medicine; Emergency Provider Student in an Organized Health Care Education/Training Program; PCP Internal Medicine; Visit Provider Internal Medicine Cardiovascular Disease | DX: I35.1 Nonrheumatic aortic (valve) insufficiency (principal); I36.1 Nonrheumatic tricuspid (valve) insufficiency | CPT/HCPCS: 93306 ==

== ENCOUNTER → 2023-08-07 14:05 | Outpatient (BNV) | payer MEDICARE, SELFPAY | PROVIDERS: Admitting Provider Internal Medicine Critical Care Medicine; Emergency Provider Student in an Organized Health Care Education/Training Program; PCP Internal Medicine; Visit Provider Internal Medicine Critical Care Medicine | DX: I63.9 Cerebral infarction, unspecified (principal) | CPT/HCPCS: 99233; 99291 ==

== ENCOUNTER → 2023-08-07 14:05 | Outpatient (BNV) | payer MEDICARE, SELFPAY | PROVIDERS: Admitting Provider Internal Medicine Critical Care Medicine; Emergency Provider Student in an Organized Health Care Education/Training Program; PCP Internal Medicine; Visit Provider Internal Medicine | DX: I63.9 Cerebral infarction, unspecified (principal) | CPT/HCPCS: 99239 ==

== ENCOUNTER 2023-10-25 14:37 | Outpatient (REF) | payer MEDICARE, SELFPAY ==
[2023-10-25 14:59] LABS: MANUAL DIFF FLAG NO
[2023-10-25 15:33] LABS: Basophils Absolute Auto 0.1 X10*3/uL (0.0-0.2); Basophils Percent Auto 1.3 % (0-2); Eosinophils Absolute Auto 0.1 X10*3/uL (0.0-0.4); Eosinophils Percent Auto 1.4 % (0-4); Hematocrit 40.5 % (37.0-47.0); Hemoglobin 13.4 g/dl (12.0-16.0); Imm Gran Abs Auto 0.02 X10*3/uL (0.00-0.03); Imm Gran Pct Auto 0.3 % (0.0-0.4); Lymphocytes Percent Auto 47.9 % (20-40); Mean Corpuscular HGB Conc 33.1 g/dl (31.0-35.0); Mean Corpuscular Hemoglobin 30.5 pg (27.0-33.0); Mean Platelet Volume 9.5 fL (9.4-12.3); Monocytes Absolute Auto 0.4 X10*3/uL (0.1-1.2); Neutrophils Absolute Auto 2.7 x10*3/uL (2.0-8.3); Neutrophils Percent Auto 42.1 % (45-73); Platelet Count 200 X10*3/uL (160-400); Red Cell Distribution Width 13.4 % (11.0-16.0); White Blood Count 6.3 X10*3/uL (4.8-10.8)
[2023-10-25 16:09] LABS: Alanine Aminotransferase 28 U/L (0-31); Albumin Level 4.2 g/dL (3.5-5.0); Alkaline Phosphatase 65 U/L (39-117); Anion Gap 11 (12-20); Aspartate Amino Transferase 26 U/L (5-31); Bilirubin Total 0.5 mg/dL (0.0-1.0); Blood Urea Nitrogen 21 mg/dL (9-16); Calcium 9.8 mg/dL (8.4-10.2); Carbon Dioxide 27 mmol/L (22-29); Chloride 106 mmol/L (96-108); Cholesterol 168 mg/dL (<200); Estimated Glomerular Filt Rate 53; Glucose Fasting 122 mg/dL (60-99); HDL Cholesterol 60 mg/dL (>40); LDL Cholesterol Calculated 76 mg/dL (<100); Potassium 4.7 mmol/L (3.3-5.1); Sodium 139 mmol/L (135-145); Total Protein 7.8 g/dL (6.5-8.0); Triglycerides 160 mg/dL (<150)
== END 2023-10-25 14:38 | disposition home or self-care (01) ==
LOC: HO.LAB 14:37
PROVIDERS: PCP Internal Medicine; Visit Provider Internal Medicine
DX: E78.5 Hyperlipidemia, unspecified (principal); R53.83 Other fatigue; Z87.898 Personal history of other specified conditions
CPT/HCPCS: 36415; 80053; 80061; 85025

== ENCOUNTER 2025-03-03 07:44 | Outpatient (REF) | payer MEDICARE, SELFPAY ==
[2025-03-03 08:27] LABS: Basophils Percent Auto 0.3 % (0-2); Eosinophils Absolute Auto 0.1 X10*3/uL (0.0-0.4); Eosinophils Percent Auto 0.4 % (0-4); Hemoglobin 13.6 g/dl (12.0-16.0); Imm Gran Abs Auto 0.05 X10*3/uL (0.00-0.03); Imm Gran Pct Auto 0.4 % (0.0-0.4); Lymphocytes Absolute Auto 5.3 X10*3/uL (1.2-4.9); Lymphocytes Percent Auto 45.4 % (20-40); MANUAL DIFF FLAG SCAN; Mean Corpuscular HGB Conc 33.2 g/dl (31.0-35.0); Mean Corpuscular Hemoglobin 29.8 pg (27.0-33.0); Mean Corpuscular Volume 89.9 fL (80.0-98.0); Mean Platelet Volume 9.3 fL (9.4-12.3); Monocytes Absolute Auto 0.9 X10*3/uL (0.1-1.2); Monocytes Percent Auto 7.8 % (2-11); Neutrophils Absolute Auto 5.4 x10*3/uL (2.0-8.3); Neutrophils Percent Auto 45.7 % (45-73); Platelet Count 219 X10*3/uL (160-400); Red Blood Count 4.56 X10*6/uL (4.20-5.50); Red Cell Distribution Width 14.4 % (11.0-16.0); SCAN SMEAR FLAG 1; White Blood Count 11.7 X10*3/uL (4.8-10.8)
[2025-03-03 08:33] LABS: Appearance Urine Cloudy; Color Urine Yellow; Glucose Urine UA Negative (Negative); Leukocyte Esterase Urine Trace (Negative); Nitrite Urine Positive (Negative); UMIC TRIGGER UACC YES; Urine Blood Negative (Negative); Urine Ketones Negative (Negative); Urine Protein Negative (Neg-Trace)
[2025-03-03 08:46] LABS: Alanine Aminotransferase 18 U/L (0-31); Albumin Level 4.3 g/dL (3.5-5.0); Alkaline Phosphatase 67 U/L (39-117); Anion Gap 11 (12-20); Aspartate Amino Transferase 25 U/L (5-31); Bilirubin Total 0.6 mg/dL (0.0-1.0); Blood Urea Nitrogen 25 mg/dL (9-16); Calcium 9.4 mg/dL (8.4-10.2); Carbon Dioxide 26 mmol/L (22-29); Chloride 105 mmol/L (96-108); Cholesterol 204 mg/dL (<200); Estimated Glomerular Filt Rate 56; Glucose Random 101 mg/dL (60-115); HDL Cholesterol 72 mg/dL (>40); LDL Cholesterol Calculated 109 mg/dL (<100); Potassium 4.1 mmol/L (3.3-5.1); Sodium 138 mmol/L (135-145); Total Protein 7.8 g/dL (6.5-8.0); Triglycerides 116 mg/dL (<150)
[2025-03-03 08:47] LABS: Bacteria Urine 4+ (None Seen); Hyaline Casts Urine 0-2 /LPF (0-2); RBC Urine 0-2 /HPF (0-2); Squamous Epithelial Cell Urine 0-2 /HPF (0-2); UACC Culture Trigger YES; WBC Urine 0-5 /HPF (0-5)
[2025-03-03 08:49] LABS: Rheumatoid Factor < 13.0 IU/mL (<15.0)
[2025-03-03 08:52] LABS: SLIDE REVIEW VERIFIED
[2025-03-03 09:27] LABS: Erythrocyte Sedimentation Rate 9 MM/HR (0-20)
[2025-03-05 15:14] LABS: Anti Nuclear Antibody Screen NEGATIVE (NEGATIVE)
== END 2025-03-03 07:45 | disposition home or self-care (01) ==
LOC: HO.LAB 07:44
PROVIDERS: PCP Internal Medicine; Visit Provider Internal Medicine
DX: Z00.00 Encounter for general adult medical examination without abnormal findings (principal); R53.83 Other fatigue; E78.5 Hyperlipidemia, unspecified
CPT/HCPCS: 36415; 80053; 80061; 81001; 85025; 85652; 86038; 86431; 87086; 87088; 87186